=== PATIENT | female | born 1990 | race Caucasian/White ===

== ENCOUNTER 2018-09-05 07:42 | Day surgery (SDC) | payer OTHER ==
[~2018-09-05] VITALS: Ht 157.5 cm; Wt 55.8 kg
[~2018-09-05 07:42] MED LIST: DEPO150I12 IM
[2018-09-05] MEDS ORDERED: PERCOCET PO (07:47)
[2018-09-05] MEDS ORDERED: AMOX500T2 PO (07:49)
[2018-09-05 08:15] LABS: URINE PREG TEST NEGATIVE (NEGATIVE)
[2018-09-05] MEDS ORDERED: BUSP15TA47 PO (08:19)
[2018-09-05] MEDS ORDERED: ZOLP5TAB (08:19)
[2018-09-05] MEDS ORDERED: METHYLENE BLUE 0.5% (5MG/ML) 10 ML AMP (PROVAYBLUE)(Q9968 PER 1MG) As Ordered ONE (09:02)
[2018-09-05] MEDS ORDERED: LIDOCAINE W/EPINEPHRINE 1% 20ML VIAL As Ordered ONE (09:03)
[2018-09-05] MEDS ORDERED: OXYMETAZOLINE NASAL SPRAY (AFRIN) As Ordered ONE (09:03)
[2018-09-05] MEDS ORDERED: LIDOCAINE 2% INJ 100 MG/5 ML SDV (FOR ANES.) As Ordered ONE (09:36)
[2018-09-05] MEDS ORDERED: ONDANSETRON 4MG/2ML VIAL (J2405) As Ordered ONE (09:36)
[2018-09-05] MEDS ORDERED: fentaNYL 250 MCG/5 ML INJECTION (J3010) As Ordered ONE (09:36)
[2018-09-05] MEDS ORDERED: PROPOFOL 200 MG/20 ML VIAL As Ordered ONE (09:36)
[2018-09-05] MEDS ORDERED: MIDAZOLAM INJ 2 MG/2 ML VIAL (J2250) As Ordered ONE (09:36)
[2018-09-05] MEDS ORDERED: SUGAMMADEX SODIUM 500 MG/5 ML VIAL (BRIDION) As Ordered ONE (09:38)
[2018-09-05] MEDS ORDERED: ROCURONIUM BROMIDE 50 MG/5 ML VIAL As Ordered ONE (09:39)
[2018-09-05] MEDS ORDERED: dexameTHASONE 4 MG/ML 1ML VIAL (J1100) As Ordered ONE (09:39)
[2018-09-05] MEDS: fentaNYL 100 MCG/2 ML INJECTION (J3010) IV PRN ×4 (10:40→11:02)
[2018-09-05] MEDS ORDERED: IBUPROFEN 800 MG TAB PO PRN (10:45)
[2018-09-05] MEDS ORDERED: ONDANSETRON 4MG/2ML VIAL (J2405) IV PRN (10:45)
[2018-09-05] MEDS ORDERED: LR 1,000 ML IV SCH (10:45)
[2018-09-05] MEDS ORDERED: PERCOCET 5MG/325MG TAB PO PRN (10:45)
[2018-09-05] MEDS: PERCOCET 5MG/325MG TAB PO PRN ×2 (10:50→12:07)
[2018-09-05 12:20] VITALS: BP 117/70
--- NOTE | 2018-09-07 15:02 | RO ---
DATE OF PROCEDURE: 09/05/2018 PREPROCEDURE DIAGNOSIS: Nasal septal deviation and chronic rhinitis. POSTPROCEDURE DIAGNOSIS: Nasal septal deviation and chronic rhinitis. PROCEDURE: Septoplasty with partial reduction of inferior turbinates. SURGEON: Rolf Miranda MD BEHAVIORAL HEALTH SPECIALIST: ANESTHESIA: INDICATIONS: 28-year-old with a long history of nasal obstruction. DESCRIPTION OF PROCEDURE: Satisfactory general endotracheal anesthesia administered. The nose was prepared for surgery by placing cotton-soaked pledgets with Afrin solution to nasal cavity bilaterally. 1% Xylocaine with 1:100,000 epinephrine was used to inject into the nasal septum and inferior turbinates. A Nino incision was made on the left side of the nose. A mucoperichondrial flap and envelope was created on the left side of the nasal septum and carried down to the junction of the bony and cartilaginous septum. This was then with an elevator, and an envelope was then created on the right side of the septum. A Rashid scissors was used to make a cut high in the perpendicular plate in the midportion of the vomer, and a central segment of the bony septum was resected. Next, with the round knife on the [place] elevator, a strip of cartilage was resected from the floor of the nose, mobilizing the quadrilateral cartilage and creating a swinging door. Then, a central segment of cartilaginous septum was resected, preserving a 1 cm dorsal and caudal strut. Double-action rongeur was used to take down deflected portions of the perpendicular plate, as well. Finally, the maxillary crest spur was taken down after elevating mucoperiosteum off both sides of it with a chisel. A segment of the resected cartilage was morselized and placed back into the septal envelope. The incision was closed using an interrupted #5-0 chromic suture. Then, a #4-0 plain suture was placed in a [id number] fashion through the two leaves of mucoperichondrium to appose them. Next, the inferior turbinates were medially infractured. A #15 blade was used to make an incision on the anterior tip of the inferior turbinate. With a Sunitha elevator, a mucoperiosteal tunnel was created on the medial side of the turbinate. Then, the microdebrider with a 2.9 mm blade was inserted into the tunnel, and the underlying turbinate bone was weakened and partially resected using the microdebrider. Then, the turbinate was laterally outfractured. The posteroinferior tip of the turbinate was then cauterized with suction cautery. After completing the surgery, Kapadia splints were placed into the nose and sewn to the columella with a #2-0 Prolene suture. The pharyngeal pack, which had been placed at the beginning of the procedure was removed, the throat was suctioned. The patient was then awakened, extubated, and sent to recovery in satisfactory condition. She will be discharged home on Percocet for pain, doxycycline 100 mg twice a day. She will be seen in the office in 1 week.
== END 2018-09-05 12:50 | disposition home or self-care (01) ==
LOC: M SDC 07:42
PROVIDERS: ATTEND Specialist
DX: J34.2 Deviated nasal septum (principal); J31.0 Chronic rhinitis; F17.210 Nicotine dependence, cigarettes, uncomplicated; F41.9 Anxiety disorder, unspecified; Z79.899 Other long term (current) drug therapy
CPT/HCPCS: 30140; 30520; 84703; 88300; J1100; J2250; J2405; J3010; Q9968